=== PATIENT | male | born 1965 | race Caucasian/White ===

== ENCOUNTER 2020-09-21 07:58 | Inpatient (IN) | payer MEDICAID ==
[~2020-09-21] VITALS: Ht 180.3 cm; Wt 89.4 kg
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
[2020-09-21] MEDS ORDERED: SODIUM CHLORIDE FLUSH 10ML SYR IVF ONE (08:30)
[2020-09-21] MEDS ORDERED: LORazepam 2 MG/ML, 1ML IVPush ONE (08:30)
[2020-09-21] MEDS ORDERED: LORazepam 2 MG/ML, 1ML ONE (08:37)
[2020-09-21 08:48] LABS: MICROSCOPIC AUTO
[2020-09-21] MEDS ORDERED: SODIUM CHLORIDE 0.9% 1,000ML IVBOLUS ONE (09:00)
[2020-09-21 09:21] LABS: BASOPHILS % (AUTO) 0 % (0-1); EOSINOPHILS % (AUTO) 0 % (1-7); LYMPHOCYTES % (AUTO) 8 % (22-44); MEAN CORPUSCULAR HEMOGLOBIN 36.4 pg (27.5-34.5); MEAN CORPUSCULAR HGB CONC 34.3 g/dL (33.2-36.2); MONOCYTES % (AUTO) 16 % (2-9); NEUTROPHILS % (AUTO) 75 % (42-75); PLATELET COUNT 63 x10^3/uL (130-400); RED BLOOD COUNT 3.99 x10^6/uL (4.38-5.82); RED CELL DISTRIBUTION WIDTH 14.1 % (9.4-14.8)
[2020-09-21] MEDS: PLEASE ENTER HEIGHT AND WEIGHT MC SCH ×2 (09:30→17:30)
[2020-09-21 10:26] LABS: MD SCAN
[2020-09-21 10:45] LABS: ALANINE AMINOTRANSFERASE 55 U/L (12-78); ALBUMIN 3.4 g/dL (3.4-5.0); ANION GAP 17 mmol/L (5-15); CALCIUM 9.1 mg/dL (8.5-10.1); CHLORIDE 105 mmol/L (98-107); CREATININE 0.95 mg/dL (0.7-1.3)
[2020-09-21 10:50] LABS: ALKALINE PHOSPHATASE 94 U/L (45-117); BILIRUBIN,TOTAL 2.1 mg/dL (0.2-1.0); CREATINE KINASE, TOTAL 318 U/L (39-308); TOTAL PROTEIN 6.7 g/dL (6.4-8.2); TROPONIN I < 0.015 ng/mL (0.000-0.045)
--- NOTE | 2020-09-21 11:02 | NUR ---
LABS RESULTED, CHART UP FOR RECHECK
[2020-09-21] MEDS ORDERED: MAGNESIUM SULFATE 1 GM, THIAMINE 100 MG, FOLIC ACID 1 MG, MVI ADULT 10 ML in SODIUM CHL... IV ONE (12:17)
--- NOTE | 2020-09-21 12:32 | NUR ---
report from [facility]. patient in bed. rails up.
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
[2020-09-21] MEDS ORDERED: POTASSIUM CHLORIDE 20 MEQ TAB.ER.PRT PO ONE (16:30)
--- NOTE | 2020-09-21 16:41 | NUR ---
report to [facility]. patient in bed.
[2020-09-21] MEDS ORDERED: LORazepam 2 MG/ML, 1ML IV PRN ×5 (17:00)
[2020-09-21] MEDS ORDERED: LORazepam 1MG TABLET PO PRN ×4 (17:00)
[2020-09-21] MEDS ORDERED: LORazepam 0.5MG TABLET PO PRN (17:00)
[2020-09-21] MEDS ORDERED: ENOXAPARIN 30 MG/0.3 ML SQ SCH (17:00)
[2020-09-21 17:33] VITALS: BP 124/90
[2020-09-21 18:08] LABS: TROPONIN I < 0.015 ng/mL (0.000-0.045)
[2020-09-21 18:11] LABS: D-DIMER 17.77 ug/mlFEU (0.00-0.52); INTERNATIONAL NORMALIZED RATIO 1.07 (0.93-1.1); PROTHROMBIN TIME 11.3 Seconds (9.6-11.5)
[2020-09-21] MEDS: SODIUM CHLORIDE 0.9% 1,000 ML IV SCH (18:14)
[2020-09-21 18:20] LABS: HCT (SEDRATE) 41.6 % (39.2-51.8)
[2020-09-21 19:15] LABS: AMPHETAMINE SCREEN, URINE Negative (Negative); BARBITURATE SCREEN, URINE Negative (Negative); BENZODIAZEPINE SCREEN, URINE Negative (Negative); CANNABINOID SCREEN, URINE Negative (Negative); COCAINE SCREEN, URINE Negative (Negative); METHADONE SCREEN, URINE Negative (Negative); OPIATE SCREEN, URINE Negative (Negative)
[2020-09-21 19:53] VITALS: BP 139/84
[2020-09-21 23:27] LABS: TROPONIN I < 0.015 ng/mL (0.000-0.045)
[2020-09-22] MEDS ORDERED: OMNIPAQUE 350 MG/ML, 75ML BOTTLE ONE (01:30)
[2020-09-22 02:04] VITALS: BP 117/84
[2020-09-22] MEDS: ENOXAPARIN 80 MG/0.8 ML SQ SCH ×2 (03:04→15:46)
[2020-09-22] MEDS: SODIUM CHLORIDE 0.9% 1,000 ML IV SCH (03:26)
[2020-09-22 06:05] LABS: BASOPHILS % (AUTO) 2 % (0-1); EOSINOPHILS % (AUTO) 1 % (1-7); LYMPHOCYTES % (AUTO) 33 % (22-44); MEAN CORPUSCULAR HEMOGLOBIN 36.6 pg (27.5-34.5); MEAN CORPUSCULAR HGB CONC 34.6 g/dL (33.2-36.2); MEAN PLATELET VOLUME 9.5 fL (7.4-10.4); MONOCYTES % (AUTO) 21 % (2-9); NEUTROPHILS % (AUTO) 44 % (42-75); PLATELET COUNT 61 x10^3/uL (130-400); RED BLOOD COUNT 3.43 x10^6/uL (4.38-5.82); RED CELL DISTRIBUTION WIDTH 13.9 % (9.4-14.8)
[2020-09-22 06:10] LABS: MD NO
[2020-09-22 06:12] LABS: ALBUMIN 2.9 g/dL (3.4-5.0); CALCIUM 8.7 mg/dL (8.5-10.1); CHLORIDE 104 mmol/L (98-107)
[2020-09-22 06:24] LABS: ALANINE AMINOTRANSFERASE 48 U/L (12-78); ALKALINE PHOSPHATASE 83 U/L (45-117); ANION GAP 11 mmol/L (5-15); BILIRUBIN,TOTAL 1.7 mg/dL (0.2-1.0); CREATINE KINASE, TOTAL 148 U/L (39-308); CREATININE 0.86 mg/dL (0.7-1.3); TOTAL PROTEIN 5.8 g/dL (6.4-8.2)
[2020-09-22 07:56] VITALS: BP 127/88
[2020-09-22] MEDS ORDERED: POTASSIUM CHLORIDE 20 MEQ TAB.ER.PRT PO ONE (12:00)
[2020-09-22] MEDS: POTASSIUM CHLORIDE 20 MEQ, MAGNESIUM SULFATE 1 GM, MVI ADULT 10 ML, THIAMINE 200 MG, FO... IV SCH (12:27)
[2020-09-22 14:00] VITALS: BP 116/80
[2020-09-22 19:06] VITALS: BP 107/74
[2020-09-23 02:40] VITALS: BP 118/72
[2020-09-23] MEDS: ENOXAPARIN 80 MG/0.8 ML SQ SCH ×2 (02:53→14:23)
[2020-09-23 06:13] LABS: MEAN CORPUSCULAR HEMOGLOBIN 35.8 pg (27.5-34.5); MEAN CORPUSCULAR HGB CONC 34.3 g/dL (33.2-36.2); MEAN PLATELET VOLUME 9.6 fL (7.4-10.4); PLATELET COUNT 61 x10^3/uL (130-400); RED BLOOD COUNT 3.22 x10^6/uL (4.38-5.82); RED CELL DISTRIBUTION WIDTH 14.3 % (9.4-14.8)
[2020-09-23 06:16] LABS: ALBUMIN 2.6 g/dL (3.4-5.0); CALCIUM 8.1 mg/dL (8.5-10.1); CHLORIDE 104 mmol/L (98-107)
[2020-09-23 06:20] LABS: ALANINE AMINOTRANSFERASE 41 U/L (12-78); ALKALINE PHOSPHATASE 72 U/L (45-117); ANION GAP 6 mmol/L (5-15); BILIRUBIN,TOTAL 1.2 mg/dL (0.2-1.0); CREATININE 0.71 mg/dL (0.7-1.3); TOTAL PROTEIN 5.1 g/dL (6.4-8.2)
[2020-09-23 06:41] LABS: MD YES
[2020-09-23 06:43] LABS: SEG#(MANUAL) 0.72 x10^3/uL (1.8-6.8); SEGS% (MANUAL) 38 % (42-75)
[2020-09-23 06:44] LABS: BASOS#(MANUAL) 0.02 x10^3/uL (0-0.1); BASOS% (MANUAL) 1 % (0-1); EOS#(MANUAL) 0.02 x10^3/uL (0.0-0.4); EOS% (MANUAL) 1 % (1-7); LYMPHS% (MANUAL) 42 % (22-44); MONOS#(MANUAL) 0.34 x10^3/uL (0.3-2.7); MONOS% (MANUAL) 18 % (2-9)
[2020-09-23 06:45] LABS: <PLATELET ESTIMATE> DECREASED
[2020-09-23 06:47] LABS: <PLT MORPHOLOGY> NORMAL PLT MORPH
[2020-09-23] MEDS: POTASSIUM CHLORIDE 20 MEQ TAB.ER.PRT PO SCH ×2 (08:00→14:23)
[2020-09-23] MEDS ORDERED: POTASSIUM CHLORIDE 20 MEQ TAB.ER.PRT PO ONE (08:00)
[2020-09-23 09:45] VITALS: BP 107/74
[2020-09-23] MEDS: POTASSIUM CHLORIDE 20 MEQ, MAGNESIUM SULFATE 1 GM, MVI ADULT 10 ML, THIAMINE 200 MG, FO... IV SCH (12:00)
[2020-09-23 14:03] VITALS: BP 109/75
[2020-09-23 20:33] VITALS: BP 121/83
[2020-09-24 00:27] VITALS: BP 112/86
[2020-09-24] MEDS: ENOXAPARIN 80 MG/0.8 ML SQ SCH (03:37)
[2020-09-24 05:47] LABS: BASOPHILS % (AUTO) 1 % (0-1); EOSINOPHILS % (AUTO) 1 % (1-7); LYMPHOCYTES % (AUTO) 36 % (22-44); MEAN CORPUSCULAR HEMOGLOBIN 36.5 pg (27.5-34.5); MEAN CORPUSCULAR HGB CONC 34.8 g/dL (33.2-36.2); MEAN PLATELET VOLUME 10.2 fL (7.4-10.4); MONOCYTES % (AUTO) 22 % (2-9); NEUTROPHILS % (AUTO) 40 % (42-75); PLATELET COUNT 62 x10^3/uL (130-400); RED BLOOD COUNT 2.95 x10^6/uL (4.38-5.82); RED CELL DISTRIBUTION WIDTH 14.2 % (9.4-14.8)
[2020-09-24 06:02] LABS: ANION GAP 5 mmol/L (5-15); CALCIUM 8.1 mg/dL (8.5-10.1); CHLORIDE 107 mmol/L (98-107)
[2020-09-24 06:04] LABS: CREATININE 0.53 mg/dL (0.7-1.3)
[2020-09-24 06:08] LABS: MD SCAN
[2020-09-24 08:07] VITALS: BP 124/82
[2020-09-24] MEDS ORDERED: LABETALOL 5MG/ML, 20ML IVPush PRN (08:30)
[2020-09-24] MEDS ORDERED: ENALAPRILAT 1.25 MG/ML, 2ML IVPush PRN (08:30)
[2020-09-24] MEDS ORDERED: POLYETHYLENE GLYCOL 17 GM PACKET PO PRN (08:30)
[2020-09-24] MEDS ORDERED: ONDANSETRON 2MG/ML, 2ML IVPush PRN (08:30)
[2020-09-24] MEDS ORDERED: ONDANSETRON ODT 4 MG PO PRN (08:30)
[2020-09-24] MEDS ORDERED: DILTIAZEM 5 MG/ML, 5ML IVPush PRN (08:30)
[2020-09-24] MEDS ORDERED: BISACODYL 10 MG SUPP PR PRN (08:30)
[2020-09-24] MEDS: MULTIVITAMIN 1 TABLET PO SCH (09:03)
[2020-09-24] MEDS: SENNA/DOCUSATE TABLET PO SCH (09:03)
[2020-09-24] MEDS: FOLIC ACID 1 MG TABLET PO SCH (09:03)
[2020-09-24] MEDS: THIAMINE 100MG TABLET PO SCH ×2 (09:03→21:03)
[2020-09-24] MEDS: CARVEDILOL 3.125 MG TABLET PO SCH ×2 (09:04→18:01)
[2020-09-24] MEDS: ENOXAPARIN 100 MG/ML SQ SCH ×2 (09:04→21:04)
[2020-09-24] MEDS: GABAPENTIN 100 MG CAPSULE PO SCH ×3 (11:17→21:03)
[2020-09-24 13:16] VITALS: BP 114/76
[2020-09-24 21:02] VITALS: BP 108/78
[2020-09-25 01:49] VITALS: BP 117/71
[2020-09-25] MEDS: GABAPENTIN 100 MG CAPSULE PO SCH ×4 (05:43→21:07)
[2020-09-25] MEDS: CARVEDILOL 3.125 MG TABLET PO SCH ×2 (05:45→16:55)
[2020-09-25 05:49] LABS: BASOPHILS % (AUTO) 2 % (0-1); EOSINOPHILS % (AUTO) 1 % (1-7); LYMPHOCYTES % (AUTO) 28 % (22-44); MEAN CORPUSCULAR HEMOGLOBIN 36.3 pg (27.5-34.5); MEAN CORPUSCULAR HGB CONC 34.4 g/dL (33.2-36.2); MEAN PLATELET VOLUME 9.8 fL (7.4-10.4); MONOCYTES % (AUTO) 24 % (2-9); NEUTROPHILS % (AUTO) 44 % (42-75); PLATELET COUNT 72 x10^3/uL (130-400); RED BLOOD COUNT 2.99 x10^6/uL (4.38-5.82); RED CELL DISTRIBUTION WIDTH 14.4 % (9.4-14.8)
[2020-09-25 05:55] LABS: ALBUMIN 2.6 g/dL (3.4-5.0); ANION GAP 4 mmol/L (5-15); CALCIUM 8.3 mg/dL (8.5-10.1); CHLORIDE 108 mmol/L (98-107)
[2020-09-25 06:01] LABS: ALANINE AMINOTRANSFERASE 40 U/L (12-78); ALKALINE PHOSPHATASE 70 U/L (45-117); BILIRUBIN,TOTAL 0.9 mg/dL (0.2-1.0); CREATININE 0.59 mg/dL (0.7-1.3); TOTAL PROTEIN 5.2 g/dL (6.4-8.2)
[2020-09-25 06:49] LABS: MD SCAN
[2020-09-25 08:26] VITALS: BP 112/73
[2020-09-25] MEDS: THIAMINE 100MG TABLET PO SCH ×2 (09:00→21:08)
[2020-09-25] MEDS ORDERED: APIXABAN 5 MG TABLET PO SCH (09:00)
[2020-09-25] MEDS: SENNA/DOCUSATE TABLET PO SCH (09:00)
[2020-09-25] MEDS: MULTIVITAMIN 1 TABLET PO SCH (09:44)
[2020-09-25] MEDS: FOLIC ACID 1 MG TABLET PO SCH (09:44)
[2020-09-25] MEDS: APIXABAN 5 MG TABLET PO SCH ×2 (09:45→21:08)
[2020-09-25 13:36] VITALS: BP 99/67
[2020-09-25 20:30] VITALS: BP 111/70
[2020-09-26 01:09] VITALS: BP 114/74
[2020-09-26 03:53] LABS: MICROSCOPIC NOT IND
[2020-09-26 05:34] LABS: MEAN CORPUSCULAR HEMOGLOBIN 36.9 pg (27.5-34.5); MEAN CORPUSCULAR HGB CONC 34.6 g/dL (33.2-36.2); MEAN PLATELET VOLUME 9.5 fL (7.4-10.4); PLATELET COUNT 98 x10^3/uL (130-400); RED BLOOD COUNT 2.94 x10^6/uL (4.38-5.82); RED CELL DISTRIBUTION WIDTH 14.2 % (9.4-14.8)
[2020-09-26 05:37] LABS: ANION GAP 6 mmol/L (5-15); CALCIUM 8.3 mg/dL (8.5-10.1); CHLORIDE 110 mmol/L (98-107); CREATININE 0.65 mg/dL (0.7-1.3)
[2020-09-26] MEDS: GABAPENTIN 100 MG CAPSULE PO SCH ×2 (05:58→12:02)
[2020-09-26] MEDS: CARVEDILOL 3.125 MG TABLET PO SCH ×2 (05:58→16:57)
[2020-09-26 06:04] LABS: MD YES
[2020-09-26 06:39] LABS: LYMPH#(MANUAL) 0.92 x10^3/uL (1-3.4); LYMPHS% (MANUAL) 46 % (22-44); MONOS#(MANUAL) 0.34 x10^3/uL (0.3-2.7); MONOS% (MANUAL) 17 % (2-9)
[2020-09-26 06:45] LABS: <PLATELET ESTIMATE> DECREASED; <PLT MORPHOLOGY> NORMAL PLT MORPH; EOS#(MANUAL) 0.02 x10^3/uL (0.0-0.4); EOS% (MANUAL) 1 % (1-7)
[2020-09-26 06:48] LABS: SEG#(MANUAL) 0.72 x10^3/uL (1.8-6.8); SEGS% (MANUAL) 36 % (42-75)
[2020-09-26 08:40] VITALS: BP 107/76
[2020-09-26] MEDS: SENNA/DOCUSATE TABLET PO SCH (09:46)
[2020-09-26] MEDS: THIAMINE 100MG TABLET PO SCH ×2 (09:46→22:09)
[2020-09-26] MEDS: MULTIVITAMIN 1 TABLET PO SCH (09:46)
[2020-09-26] MEDS: FOLIC ACID 1 MG TABLET PO SCH (09:46)
[2020-09-26] MEDS: APIXABAN 5 MG TABLET PO SCH ×2 (09:47→22:10)
[2020-09-26 14:50] VITALS: BP 112/75
[2020-09-26] MEDS: GABAPENTIN 300 MG CAPSULE PO SCH ×2 (16:53→22:10)
[2020-09-26 20:52] VITALS: BP 117/82
[2020-09-27 00:52] VITALS: BP 132/89
[2020-09-27 06:01] VITALS: BP 121/87
[2020-09-27] MEDS: GABAPENTIN 300 MG CAPSULE PO SCH ×4 (06:04→22:01)
[2020-09-27] MEDS: CARVEDILOL 3.125 MG TABLET PO SCH ×2 (06:04→17:06)
[2020-09-27 06:15] LABS: MEAN CORPUSCULAR HEMOGLOBIN 37.9 pg (27.5-34.5); MEAN CORPUSCULAR HGB CONC 35.4 g/dL (33.2-36.2); MEAN PLATELET VOLUME 9.3 fL (7.4-10.4); PLATELET COUNT 122 x10^3/uL (130-400); RED BLOOD COUNT 3.05 x10^6/uL (4.38-5.82); RED CELL DISTRIBUTION WIDTH 14.4 % (9.4-14.8)
[2020-09-27 07:24] VITALS: BP 118/83
[2020-09-27 07:29] LABS: MD YES
[2020-09-27 07:34] LABS: ANION GAP 8 mmol/L (5-15); CALCIUM 8.8 mg/dL (8.5-10.1); CHLORIDE 109 mmol/L (98-107); CREATININE 0.59 mg/dL (0.7-1.3)
[2020-09-27 08:18] LABS: BAND#(MANUAL) 0.02 x10^3/uL; BANDS%(MANUAL) 1 % (0-7); LYMPH#(MANUAL) 0.59 x10^3/uL (1-3.4); LYMPHS% (MANUAL) 27 % (22-44); MONOS#(MANUAL) 0.33 x10^3/uL (0.3-2.7); MONOS% (MANUAL) 15 % (2-9); SEG#(MANUAL) 1.25 x10^3/uL (1.8-6.8); SEGS% (MANUAL) 57 % (42-75)
[2020-09-27 08:19] LABS: <PLATELET ESTIMATE> DECREASED; <PLT MORPHOLOGY> NORMAL PLT MORPH
[2020-09-27] MEDS: APIXABAN 5 MG TABLET PO SCH ×2 (09:08→22:01)
[2020-09-27] MEDS: FOLIC ACID 1 MG TABLET PO SCH (09:08)
[2020-09-27] MEDS: MULTIVITAMIN 1 TABLET PO SCH (09:08)
[2020-09-27] MEDS: THIAMINE 100MG TABLET PO SCH ×2 (09:08→22:01)
[2020-09-27] MEDS: SENNA/DOCUSATE TABLET PO SCH (09:09)
[2020-09-27 12:38] VITALS: BP 100/69
[2020-09-27 21:52] VITALS: BP 98/65
[2020-09-28] MEDS: CARVEDILOL 3.125 MG TABLET PO SCH ×2 (04:23→18:00)
[2020-09-28] MEDS: GABAPENTIN 300 MG CAPSULE PO SCH ×4 (04:23→21:54)
[2020-09-28 04:26] VITALS: BP 98/66
[2020-09-28 06:13] LABS: MEAN CORPUSCULAR HEMOGLOBIN 38.3 pg (27.5-34.5); MEAN CORPUSCULAR HGB CONC 35.2 g/dL (33.2-36.2); MEAN PLATELET VOLUME 9.5 fL (7.4-10.4); PLATELET COUNT 149 x10^3/uL (130-400); RED BLOOD COUNT 3.08 x10^6/uL (4.38-5.82); RED CELL DISTRIBUTION WIDTH 14.9 % (9.4-14.8)
[2020-09-28 06:18] LABS: ANION GAP 6 mmol/L (5-15); CALCIUM 8.6 mg/dL (8.5-10.1); CHLORIDE 108 mmol/L (98-107)
[2020-09-28 06:20] LABS: CREATININE 0.57 mg/dL (0.7-1.3)
[2020-09-28 07:16] VITALS: BP 108/76
[2020-09-28 08:39] LABS: MD YES
[2020-09-28 08:41] LABS: <PLATELET ESTIMATE> ADEQUATE; <PLT MORPHOLOGY> NORMAL PLT MORPH; BASOS#(MANUAL) 0.08 x10^3/uL (0-0.1); BASOS% (MANUAL) 3 % (0-1); LYMPH#(MANUAL) 0.84 x10^3/uL (1-3.4); LYMPHS% (MANUAL) 31 % (22-44); MONOS#(MANUAL) 0.46 x10^3/uL (0.3-2.7); MONOS% (MANUAL) 17 % (2-9); POLYCHROMASIA 1+; SEG#(MANUAL) 1.32 x10^3/uL (1.8-6.8); SEGS% (MANUAL) 49 % (42-75)
[2020-09-28] MEDS: SENNA/DOCUSATE TABLET PO SCH (08:55)
[2020-09-28] MEDS: THIAMINE 100MG TABLET PO SCH ×2 (09:00→21:54)
[2020-09-28] MEDS: APIXABAN 5 MG TABLET PO SCH ×2 (09:01→21:54)
[2020-09-28] MEDS: MULTIVITAMIN 1 TABLET PO SCH (09:02)
[2020-09-28] MEDS: FOLIC ACID 1 MG TABLET PO SCH (09:03)
[2020-09-28 13:47] VITALS: BP 98/66
[2020-09-28 21:51] VITALS: BP 115/78
[2020-09-29 02:17] VITALS: BP 100/69
[2020-09-29 06:01] VITALS: BP 119/80
[2020-09-29] MEDS: GABAPENTIN 300 MG CAPSULE PO SCH ×4 (06:07→20:23)
[2020-09-29] MEDS: CARVEDILOL 3.125 MG TABLET PO SCH ×2 (06:08→18:11)
[2020-09-29 07:17] VITALS: BP 120/83
[2020-09-29] MEDS: THIAMINE 100MG TABLET PO SCH ×2 (08:28→20:23)
[2020-09-29] MEDS: APIXABAN 5 MG TABLET PO SCH ×2 (08:28→20:22)
[2020-09-29] MEDS: FOLIC ACID 1 MG TABLET PO SCH (08:28)
[2020-09-29] MEDS: MULTIVITAMIN 1 TABLET PO SCH (08:28)
[2020-09-29] MEDS: SENNA/DOCUSATE TABLET PO SCH (08:29)
[2020-09-29] MEDS: ACETAMINOPHEN 325 MG TABLET PO PRN (08:31)
[2020-09-29 10:13] VITALS: BP 93/64
[2020-09-29 13:27] VITALS: BP 103/71
[2020-09-29 19:52] VITALS: BP 107/67
[2020-09-30 02:45] VITALS: BP 110/71
[2020-09-30] MEDS: GABAPENTIN 300 MG CAPSULE PO SCH ×4 (06:09→21:42)
[2020-09-30] MEDS: CARVEDILOL 3.125 MG TABLET PO SCH ×2 (06:09→16:50)
[2020-09-30 06:54] LABS: BASOPHILS % (AUTO) 3 % (0-1); EOSINOPHILS % (AUTO) 1 % (1-7); LYMPHOCYTES % (AUTO) 30 % (22-44); MEAN CORPUSCULAR HGB CONC 34.2 g/dL (33.2-36.2); MEAN PLATELET VOLUME 8.9 fL (7.4-10.4); MONOCYTES % (AUTO) 15 % (2-9); NEUTROPHILS % (AUTO) 51 % (42-75); PLATELET COUNT 241 x10^3/uL (130-400); RED BLOOD COUNT 3.43 x10^6/uL (4.38-5.82); RED CELL DISTRIBUTION WIDTH 14.6 % (9.4-14.8)
[2020-09-30 07:02] VITALS: BP 104/74
[2020-09-30 07:04] LABS: MD NO
[2020-09-30] MEDS: SENNA/DOCUSATE TABLET PO SCH (07:50)
[2020-09-30] MEDS: MULTIVITAMIN 1 TABLET PO SCH (07:54)
[2020-09-30] MEDS: APIXABAN 5 MG TABLET PO SCH ×2 (07:54→21:42)
[2020-09-30] MEDS: THIAMINE 100MG TABLET PO SCH ×2 (07:54→21:42)
[2020-09-30] MEDS: FOLIC ACID 1 MG TABLET PO SCH (07:54)
[2020-09-30 13:19] VITALS: BP 110/68
[2020-09-30 19:20] VITALS: BP 101/70
[2020-10-01 00:26] VITALS: BP 100/67
[2020-10-01 05:18] VITALS: BP 109/75
[2020-10-01] MEDS: CARVEDILOL 3.125 MG TABLET PO SCH ×2 (05:19→17:54)
[2020-10-01] MEDS: GABAPENTIN 300 MG CAPSULE PO SCH ×4 (05:21→19:33)
[2020-10-01] MEDS: FOLIC ACID 1 MG TABLET PO SCH (07:30)
[2020-10-01] MEDS: THIAMINE 100MG TABLET PO SCH ×2 (07:30→19:33)
[2020-10-01] MEDS: SENNA/DOCUSATE TABLET PO SCH (07:31)
[2020-10-01] MEDS: MULTIVITAMIN 1 TABLET PO SCH (07:31)
[2020-10-01] MEDS: APIXABAN 5 MG TABLET PO SCH ×2 (07:31→19:33)
[2020-10-01 08:15] VITALS: BP 100/68
[2020-10-01 12:17] VITALS: BP 105/72
[2020-10-01 17:52] VITALS: BP 110/67
[2020-10-01 18:51] VITALS: BP 106/71
[2020-10-02 02:08] VITALS: BP 113/78
[2020-10-02 05:21] VITALS: BP 121/80
[2020-10-02] MEDS: GABAPENTIN 300 MG CAPSULE PO SCH ×4 (05:25→19:21)
[2020-10-02] MEDS: CARVEDILOL 3.125 MG TABLET PO SCH ×2 (05:25→17:40)
[2020-10-02 07:36] VITALS: BP 99/71
[2020-10-02] MEDS: THIAMINE 100MG TABLET PO SCH ×2 (07:41→19:21)
[2020-10-02] MEDS: APIXABAN 5 MG TABLET PO SCH ×2 (07:41→19:21)
[2020-10-02] MEDS: LISINOPRIL 5 MG TABLET PO SCH (07:41)
[2020-10-02] MEDS: FOLIC ACID 1 MG TABLET PO SCH (07:41)
[2020-10-02] MEDS: MULTIVITAMIN 1 TABLET PO SCH (07:41)
[2020-10-02] MEDS: SENNA/DOCUSATE TABLET PO SCH (07:44)
[2020-10-02] MEDS ORDERED: LINEZOLID 600 MG TABLET PO SCH (09:00)
[2020-10-02] MEDS: AMOXICILLIN/CLAV 875-125MG TABLET PO SCH ×2 (10:50→22:42)
[2020-10-02 14:46] VITALS: BP 100/74
[2020-10-02] MEDS ORDERED: morphine SULFATE 10 MG/ML, 1ML IVPush ONE (15:30)
[2020-10-02 17:37] VITALS: BP 101/67
[2020-10-02 18:42] VITALS: BP 93/64
[2020-10-03 01:20] VITALS: BP 101/65
[2020-10-03] MEDS: CARVEDILOL 3.125 MG TABLET PO SCH ×2 (05:43→18:29)
[2020-10-03] MEDS: GABAPENTIN 300 MG CAPSULE PO SCH ×4 (05:43→20:58)
[2020-10-03] MEDS: APIXABAN 5 MG TABLET PO SCH ×2 (07:45→20:58)
[2020-10-03] MEDS: ACETAMINOPHEN 325 MG TABLET PO PRN (07:45)
[2020-10-03] MEDS: THIAMINE 100MG TABLET PO SCH ×2 (07:45→20:58)
[2020-10-03] MEDS: MULTIVITAMIN 1 TABLET PO SCH (07:45)
[2020-10-03] MEDS: FOLIC ACID 1 MG TABLET PO SCH (07:45)
[2020-10-03] MEDS: SENNA/DOCUSATE TABLET PO SCH (07:46)
[2020-10-03] MEDS: LISINOPRIL 5 MG TABLET PO SCH (07:46)
[2020-10-03 08:22] VITALS: BP 102/72
[2020-10-03] MEDS: AMOXICILLIN/CLAV 875-125MG TABLET PO SCH ×2 (10:51→23:38)
[2020-10-03 12:45] VITALS: BP 113/79
[2020-10-03 18:21] VITALS: BP 115/80
[2020-10-04 03:08] VITALS: BP 108/75
[2020-10-04 05:43] VITALS: BP 120/74
[2020-10-04] MEDS: CARVEDILOL 3.125 MG TABLET PO SCH ×2 (05:44→16:47)
[2020-10-04] MEDS: GABAPENTIN 300 MG CAPSULE PO SCH ×4 (05:44→20:28)
[2020-10-04] MEDS: FOLIC ACID 1 MG TABLET PO SCH (08:54)
[2020-10-04] MEDS: THIAMINE 100MG TABLET PO SCH ×2 (08:54→20:28)
[2020-10-04] MEDS: LISINOPRIL 5 MG TABLET PO SCH (08:54)
[2020-10-04] MEDS: APIXABAN 5 MG TABLET PO SCH ×2 (08:54→20:28)
[2020-10-04] MEDS: MULTIVITAMIN 1 TABLET PO SCH (08:54)
[2020-10-04] MEDS: SENNA/DOCUSATE TABLET PO SCH (08:55)
[2020-10-04 10:33] VITALS: BP 96/70
[2020-10-04] MEDS: AMOXICILLIN/CLAV 875-125MG TABLET PO SCH ×2 (11:21→22:55)
[2020-10-04 12:29] VITALS: BP 110/69
[2020-10-04 18:08] VITALS: BP 110/72
[2020-10-04] MEDS: ACETAMINOPHEN 325 MG TABLET PO PRN (20:34)
[2020-10-05 02:39] VITALS: BP 99/68
[2020-10-05 05:35] VITALS: BP 102/72
[2020-10-05] MEDS: CARVEDILOL 3.125 MG TABLET PO SCH ×2 (05:37→17:41)
[2020-10-05] MEDS: GABAPENTIN 300 MG CAPSULE PO SCH ×4 (05:37→20:43)
[2020-10-05 07:38] VITALS: BP 102/76
[2020-10-05] MEDS: THIAMINE 100MG TABLET PO SCH ×2 (07:52→20:43)
[2020-10-05] MEDS: MULTIVITAMIN 1 TABLET PO SCH (07:52)
[2020-10-05] MEDS: APIXABAN 5 MG TABLET PO SCH ×2 (07:52→20:43)
[2020-10-05] MEDS: ACETAMINOPHEN 325 MG TABLET PO PRN ×2 (07:52→15:50)
[2020-10-05] MEDS: FOLIC ACID 1 MG TABLET PO SCH (07:52)
[2020-10-05] MEDS: LISINOPRIL 5 MG TABLET PO SCH ×2 (07:53→07:54)
[2020-10-05] MEDS: SENNA/DOCUSATE TABLET PO SCH (07:53)
[2020-10-05] MEDS: AMOXICILLIN/CLAV 875-125MG TABLET PO SCH ×2 (10:17→22:18)
[2020-10-05 12:44] VITALS: BP 99/66
[2020-10-05 17:40] VITALS: BP 99/68
[2020-10-05 18:26] VITALS: BP 94/65
[2020-10-06 02:39] VITALS: BP 90/63
[2020-10-06] MEDS: CARVEDILOL 3.125 MG TABLET PO SCH ×2 (05:53→18:00)
[2020-10-06] MEDS: GABAPENTIN 300 MG CAPSULE PO SCH ×4 (05:53→19:54)
[2020-10-06 06:42] VITALS: BP 111/80
[2020-10-06] MEDS: MULTIVITAMIN 1 TABLET PO SCH (08:14)
[2020-10-06] MEDS: APIXABAN 5 MG TABLET PO SCH ×2 (08:14→19:54)
[2020-10-06] MEDS: ACETAMINOPHEN 325 MG TABLET PO PRN ×2 (08:14→23:26)
[2020-10-06] MEDS: FOLIC ACID 1 MG TABLET PO SCH (08:14)
[2020-10-06] MEDS: THIAMINE 100MG TABLET PO SCH ×2 (08:15→19:54)
[2020-10-06] MEDS: SENNA/DOCUSATE TABLET PO SCH (08:16)
[2020-10-06 12:51] VITALS: BP 105/71
[2020-10-06 17:45] VITALS: BP 108/75
[2020-10-06 19:13] VITALS: BP 102/63
[2020-10-07 01:41] VITALS: BP 99/69
[2020-10-07 05:35] VITALS: BP 102/74
[2020-10-07] MEDS: GABAPENTIN 300 MG CAPSULE PO SCH ×4 (05:36→19:40)
[2020-10-07] MEDS: CARVEDILOL 3.125 MG TABLET PO SCH ×2 (05:36→18:04)
[2020-10-07 06:56] VITALS: BP 106/74
[2020-10-07] MEDS: FOLIC ACID 1 MG TABLET PO SCH (09:08)
[2020-10-07] MEDS: APIXABAN 5 MG TABLET PO SCH ×2 (09:08→19:40)
[2020-10-07] MEDS: MULTIVITAMIN 1 TABLET PO SCH (09:08)
[2020-10-07] MEDS: THIAMINE 100MG TABLET PO SCH ×2 (09:08→19:40)
[2020-10-07 12:28] VITALS: BP 103/71
[2020-10-07 19:02] VITALS: BP 105/69
[2020-10-07] MEDS: ACETAMINOPHEN 325 MG TABLET PO PRN (19:52)
[2020-10-08 03:01] VITALS: BP 117/77
[2020-10-08 05:27] VITALS: BP 109/79
[2020-10-08] MEDS: GABAPENTIN 300 MG CAPSULE PO SCH ×4 (05:28→22:15)
[2020-10-08] MEDS: CARVEDILOL 3.125 MG TABLET PO SCH ×2 (05:28→17:17)
[2020-10-08 06:20] VITALS: BP 123/70
[2020-10-08] MEDS: MULTIVITAMIN 1 TABLET PO SCH (08:17)
[2020-10-08] MEDS: APIXABAN 5 MG TABLET PO SCH ×2 (08:17→22:15)
[2020-10-08] MEDS: THIAMINE 100MG TABLET PO SCH ×2 (08:18→22:15)
[2020-10-08] MEDS: FOLIC ACID 1 MG TABLET PO SCH (08:18)
[2020-10-08 12:52] VITALS: BP 107/77
[2020-10-08 18:51] VITALS: BP 103/74
[2020-10-09 01:59] VITALS: BP 121/88
[2020-10-09] MEDS: CARVEDILOL 3.125 MG TABLET PO SCH ×2 (06:29→18:27)
[2020-10-09] MEDS: GABAPENTIN 300 MG CAPSULE PO SCH ×4 (06:29→21:50)
[2020-10-09 07:04] VITALS: BP 107/80
[2020-10-09] MEDS: THIAMINE 100MG TABLET PO SCH ×2 (07:51→21:50)
[2020-10-09] MEDS: FOLIC ACID 1 MG TABLET PO SCH (07:51)
[2020-10-09] MEDS: MULTIVITAMIN 1 TABLET PO SCH (07:51)
[2020-10-09] MEDS: APIXABAN 5 MG TABLET PO SCH ×2 (07:52→21:50)
[2020-10-09 13:46] VITALS: BP 121/82
[2020-10-09 18:25] VITALS: BP 110/67
[2020-10-10 00:17] VITALS: BP 109/75
[2020-10-10 05:35] VITALS: BP 104/70
[2020-10-10] MEDS: CARVEDILOL 3.125 MG TABLET PO SCH ×2 (05:36→17:39)
[2020-10-10] MEDS: GABAPENTIN 300 MG CAPSULE PO SCH ×4 (05:36→20:31)
[2020-10-10 06:58] VITALS: BP 99/72
[2020-10-10] MEDS: FOLIC ACID 1 MG TABLET PO SCH (08:27)
[2020-10-10] MEDS: THIAMINE 100MG TABLET PO SCH ×2 (08:27→20:31)
[2020-10-10] MEDS: MULTIVITAMIN 1 TABLET PO SCH (08:27)
[2020-10-10] MEDS: APIXABAN 5 MG TABLET PO SCH ×2 (08:28→20:31)
[2020-10-10 12:32] VITALS: BP 113/76
[2020-10-10 18:26] VITALS: BP 119/83
[2020-10-10] MEDS: ACETAMINOPHEN 325 MG TABLET PO PRN (20:42)
[2020-10-11 00:41] VITALS: BP 96/67
[2020-10-11] MEDS: CARVEDILOL 3.125 MG TABLET PO SCH ×2 (05:41→17:09)
[2020-10-11] MEDS: GABAPENTIN 300 MG CAPSULE PO SCH ×4 (05:41→19:50)
[2020-10-11 06:28] VITALS: BP 118/80
[2020-10-11] MEDS: THIAMINE 100MG TABLET PO SCH ×2 (09:53→19:51)
[2020-10-11] MEDS: FOLIC ACID 1 MG TABLET PO SCH (09:53)
[2020-10-11] MEDS: MULTIVITAMIN 1 TABLET PO SCH (09:53)
[2020-10-11] MEDS: APIXABAN 5 MG TABLET PO SCH ×2 (09:53→19:50)
[2020-10-11 12:24] VITALS: BP 103/72
[2020-10-11 19:23] VITALS: BP 116/75
[2020-10-11] MEDS: ACETAMINOPHEN 325 MG TABLET PO PRN (19:51)
[2020-10-12 01:45] VITALS: BP 115/81
[2020-10-12] MEDS: GABAPENTIN 300 MG CAPSULE PO SCH ×4 (06:19→20:00)
[2020-10-12] MEDS: CARVEDILOL 3.125 MG TABLET PO SCH ×2 (06:19→17:54)
[2020-10-12 06:21] VITALS: BP 118/83
[2020-10-12] MEDS: FOLIC ACID 1 MG TABLET PO SCH (09:16)
[2020-10-12] MEDS: THIAMINE 100MG TABLET PO SCH ×2 (09:16→20:00)
[2020-10-12] MEDS: MULTIVITAMIN 1 TABLET PO SCH (09:16)
[2020-10-12] MEDS: APIXABAN 5 MG TABLET PO SCH ×2 (09:16→20:00)
[2020-10-12 12:29] VITALS: BP 102/72
[2020-10-12 18:18] VITALS: BP 110/72
[2020-10-12] MEDS: ACETAMINOPHEN 325 MG TABLET PO PRN (20:13)
[2020-10-13 01:15] VITALS: BP 116/82
[2020-10-13 05:08] LABS: BASOPHILS % (AUTO) 3 % (0-1); EOSINOPHILS % (AUTO) 3 % (1-7); LYMPHOCYTES % (AUTO) 43 % (22-44); MEAN CORPUSCULAR HEMOGLOBIN 37.4 pg (27.5-34.5); MEAN CORPUSCULAR HGB CONC 34.9 g/dL (33.2-36.2); MEAN PLATELET VOLUME 8.2 fL (7.4-10.4); MONOCYTES % (AUTO) 12 % (2-9); NEUTROPHILS % (AUTO) 40 % (42-75); PLATELET COUNT 275 x10^3/uL (130-400); RED BLOOD COUNT 3.83 x10^6/uL (4.38-5.82); RED CELL DISTRIBUTION WIDTH 13.5 % (9.4-14.8)
[2020-10-13 05:15] LABS: MD SCAN
[2020-10-13 05:20] LABS: CHLORIDE 108 mmol/L (98-107)
[2020-10-13 05:30] LABS: ALANINE AMINOTRANSFERASE 32 U/L (12-78); ALBUMIN 3.2 g/dL (3.4-5.0); ALKALINE PHOSPHATASE 86 U/L (45-117); ANION GAP 5 mmol/L (5-15); BILIRUBIN,TOTAL 0.6 mg/dL (0.2-1.0); CALCIUM 8.8 mg/dL (8.5-10.1); CREATININE 0.72 mg/dL (0.7-1.3); TOTAL PROTEIN 6.2 g/dL (6.4-8.2)
[2020-10-13] MEDS: CARVEDILOL 3.125 MG TABLET PO SCH ×2 (06:25→17:16)
[2020-10-13] MEDS: GABAPENTIN 300 MG CAPSULE PO SCH ×4 (06:25→20:37)
[2020-10-13 07:35] VITALS: BP 114/86
[2020-10-13] MEDS: APIXABAN 5 MG TABLET PO SCH ×2 (09:01→20:36)
[2020-10-13] MEDS: MULTIVITAMIN 1 TABLET PO SCH (09:01)
[2020-10-13] MEDS: THIAMINE 100MG TABLET PO SCH ×2 (09:02→20:35)
[2020-10-13] MEDS: FOLIC ACID 1 MG TABLET PO SCH (09:02)
[2020-10-13 13:10] VITALS: BP 108/70
[2020-10-13 18:27] VITALS: BP 107/70
[2020-10-13] MEDS ORDERED: GABAPENTIN 100 MG CAPSULE ONE (20:34)
[2020-10-13] MEDS: ACETAMINOPHEN 325 MG TABLET PO PRN (20:37)
[2020-10-14 01:49] VITALS: BP 101/70
[2020-10-14] MEDS: GABAPENTIN 300 MG CAPSULE PO SCH ×2 (06:13→10:29)
[2020-10-14] MEDS: CARVEDILOL 3.125 MG TABLET PO SCH (06:13)
[2020-10-14 07:55] VITALS: BP 125/87
[2020-10-14] MEDS: MULTIVITAMIN 1 TABLET PO SCH (08:04)
[2020-10-14] MEDS: THIAMINE 100MG TABLET PO SCH (08:04)
[2020-10-14] MEDS: FOLIC ACID 1 MG TABLET PO SCH (08:04)
[2020-10-14] MEDS: APIXABAN 5 MG TABLET PO SCH (08:04)
[2020-10-14] MEDS ORDERED: GABA300C PO (12:29)
[2020-10-14] MEDS ORDERED: APIX5TAB PO (12:29)
[2020-10-14] MEDS ORDERED: CARV3.1212 PO (12:29)
[2020-10-14] MEDS ORDERED: THIA100T67 PO (12:29)
== END 2020-10-14 14:09 | DRG 175 ==
LOC: ED 09:04 → EDIP 11:41 → 5SO 17:18 → 4NW 09-29 10:02 → 4NE 10-06 08:25 → 4NW 10-06 19:41
PROVIDERS: ADMIT Family Medicine; ATTEND Internal Medicine
PROC: 0X980ZZ Drainage of Right Upper Arm, Open Approach (ICD-10-PCS; principal; 2020-10-02)
DX: I26.99 Other pulmonary embolism without acute cor pulmonale (principal); G93.41 Metabolic encephalopathy; D68.69 Other thrombophilia; E87.2 Acidosis; F10.239 Alcohol dependence with withdrawal, unspecified; I50.20 Unspecified systolic (congestive) heart failure; R47.01 Aphasia; L02.413 Cutaneous abscess of right upper limb; D53.9 Nutritional anemia, unspecified; D69.6 Thrombocytopenia, unspecified; D70.9 Neutropenia, unspecified; D75.89 Other specified diseases of blood and blood-forming organs; E87.6 Hypokalemia; F40.240 Claustrophobia; G62.1 Alcoholic polyneuropathy; I48.0 Paroxysmal atrial fibrillation; Z79.01 Long term (current) use of anticoagulants; R31.9 Hematuria, unspecified; Z88.2 Allergy status to sulfonamides
CPT/HCPCS: 36415; 70450; 70551; 71045; 71275; 76536; 80048; 80053; 80307; 80320; 81001; 81003; 82140; 82542; 82550; 82607; 83735; 84100; 84145; 84443; 84484; 85025; 85379; 85610; 85651; 86704; 86706; 86708; 86803; 87040; 87070; 87075; 87205; 87340; 87806; 93005; 93306; 93970; 96374; 99285; G0378; J1650; J3411; J3475; J3480; Q9967; 92523-GN; G0475; G0480; J2060; J2270; J7030

== ENCOUNTER 2020-12-15 03:00 | Inpatient (IN) | payer MEDICAID ==
[~2020-12-15] VITALS: Ht 180.3 cm; Wt 93.9 kg
[~2020-12-15 03:00] MED LIST: APIX5TAB PO; CARV3.1212 PO; GABA300C PO; THIA100T67 PO
[2020-12-15] MEDS ORDERED: ASPIRIN 81 MG TABLET CHEW ONE (03:14)
[2020-12-15] MEDS ORDERED: DILTIAZEM 5 MG/ML, 5ML ONE (03:15)
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
[2020-12-15] MEDS ORDERED: SODIUM CHLORIDE 0.9% 1,000ML IVBOLUS ONE (03:30)
[2020-12-15] MEDS ORDERED: ASPIRIN 81 MG TABLET CHEW PO ONE (03:30)
[2020-12-15] MEDS ORDERED: DILTIAZEM 5 MG/ML, 5ML IVPush ONE (03:30)
--- NOTE | 2020-12-15 03:37 | NUR ---
VS UPDATED AND ARE IMPROVED AFTER MED. HR UPON ARRIVAL WAS 170'S TO 190'S. AFTER MED DOWN TO 120'S TO 130'S. A-FIB ON MONITOR. MOTHER AT BS FOR SUPPORT. ALL MONIOTRS PLACED ON ARRIVAL. CALL LIGHT IN REACH AND EXPLAINED. BS REPORT TO KIMBERLY VEGA TO ASSUME CARE OF PT.
[2020-12-15 03:40] LABS: BASOPHILS % (AUTO) 0 % (0-1); EOSINOPHILS % (AUTO) 0 % (1-7); LYMPHOCYTES % (AUTO) 8 % (22-44); MEAN CORPUSCULAR HEMOGLOBIN 34.5 pg (27.5-34.5); MEAN CORPUSCULAR HGB CONC 34.5 g/dL (33.2-36.2); MEAN PLATELET VOLUME 9.7 fL (7.4-10.4); MONOCYTES % (AUTO) 10 % (2-9); NEUTROPHILS % (AUTO) 82 % (42-75); PLATELET COUNT 80 x10^3/uL (130-400); RED BLOOD COUNT 4.53 x10^6/uL (4.38-5.82); RED CELL DISTRIBUTION WIDTH 12.6 % (9.4-14.8)
[2020-12-15 03:42] LABS: MD NO
[2020-12-15 03:52] LABS: ALBUMIN 4.3 g/dL (3.4-5.0); ANION GAP 15 mmol/L (5-15); CALCIUM 9.3 mg/dL (8.5-10.1); CHLORIDE 97 mmol/L (98-107); CREATININE 0.79 mg/dL (0.7-1.3)
[2020-12-15 03:56] LABS: TROPONIN I < 0.015 ng/mL (0.000-0.045)
--- NOTE | 2020-12-15 04:11 | NUR ---
PT TOLD RN THAT HE HAS BEEN DRINKING ETOH. HEAVY FOR THE LAST COUPLE WEEK BUT STOPTED1 WEEK AGO
[2020-12-15] MEDS ORDERED: CARVEDILOL 3.125 MG TABLET ONE (04:15)
[2020-12-15] MEDS ORDERED: LORazepam 2 MG/ML, 1ML ONE (04:18)
[2020-12-15] MEDS ORDERED: LORazepam 2 MG/ML, 1ML IVPush ONE (04:30)
[2020-12-15] MEDS ORDERED: CARVEDILOL 3.125 MG TABLET PO ONE (04:30)
[2020-12-15] MEDS: CARVEDILOL 3.125 MG TABLET PO SCH ×3 (04:58→16:49)
[2020-12-15] MEDS ORDERED: THIAMINE 200 MG in DEXTROSE 5% 50 ML IVPB ONE (05:00)
[2020-12-15] MEDS ORDERED: ACETAMINOPHEN 325 MG TABLET PO PRN (05:00)
[2020-12-15] MEDS ORDERED: ONDANSETRON 2MG/ML, 2ML IVPush PRN (05:00)
[2020-12-15] MEDS ORDERED: HYDROcodone/APAP 5/325 TABLET PO PRN (05:00)
[2020-12-15] MEDS ORDERED: LORazepam 0.5MG TABLET PO PRN (05:00)
[2020-12-15] MEDS ORDERED: LABETALOL 5MG/ML, 20ML IVPush PRN (05:00)
[2020-12-15] MEDS ORDERED: LORazepam 1MG TABLET PO PRN ×4 (05:00)
[2020-12-15] MEDS ORDERED: FOLIC ACID 1 MG TABLET PO ONE (05:00)
[2020-12-15] MEDS: DIAZEPAM 5 MG TABLET PO SCH ×4 (05:00→23:00)
[2020-12-15] MEDS ORDERED: GABAPENTIN 300 MG CAPSULE ONE (05:29)
[2020-12-15] MEDS: GABAPENTIN 300 MG CAPSULE PO SCH ×4 (05:37→20:05)
[2020-12-15 06:28] VITALS: BP 151/107
[2020-12-15 07:25] VITALS: BP 147/86
[2020-12-15] MEDS: APIXABAN 5 MG TABLET PO SCH ×2 (08:14→20:05)
[2020-12-15] MEDS: MULTIVITAMINS/MINERALS TABLET PO SCH (08:14)
[2020-12-15 13:20] VITALS: BP 128/87
[2020-12-15] MEDS: CARVEDILOL 6.25 MG TABLET PO SCH (18:04)
[2020-12-15 20:01] VITALS: BP 111/68
[2020-12-16 00:49] VITALS: BP 111/68
[2020-12-16 05:27] LABS: BASOPHILS % (AUTO) 1 % (0-1); EOSINOPHILS % (AUTO) 1 % (1-7); LYMPHOCYTES % (AUTO) 33 % (22-44); MEAN CORPUSCULAR HEMOGLOBIN 34.7 pg (27.5-34.5); MEAN CORPUSCULAR HGB CONC 34.2 g/dL (33.2-36.2); MEAN PLATELET VOLUME 10.2 fL (7.4-10.4); MONOCYTES % (AUTO) 14 % (2-9); NEUTROPHILS % (AUTO) 52 % (42-75); PLATELET COUNT 74 x10^3/uL (130-400); RED BLOOD COUNT 4.37 x10^6/uL (4.38-5.82); RED CELL DISTRIBUTION WIDTH 12.7 % (9.4-14.8)
[2020-12-16] MEDS: GABAPENTIN 300 MG CAPSULE PO SCH ×4 (05:34→22:10)
[2020-12-16] MEDS: CARVEDILOL 6.25 MG TABLET PO SCH ×2 (05:34→16:54)
[2020-12-16] MEDS: DIAZEPAM 5 MG TABLET PO SCH ×4 (05:34→22:10)
[2020-12-16 05:38] LABS: MD NO
[2020-12-16 05:42] LABS: ALBUMIN 3.6 g/dL (3.4-5.0); CALCIUM 9.6 mg/dL (8.5-10.1); CHLORIDE 102 mmol/L (98-107)
[2020-12-16 05:47] LABS: ALANINE AMINOTRANSFERASE 29 U/L (12-78); ALKALINE PHOSPHATASE 92 U/L (45-117); ANION GAP 6 mmol/L (5-15); BILIRUBIN,TOTAL 2.2 mg/dL (0.2-1.0); CREATININE 0.86 mg/dL (0.7-1.3); TOTAL PROTEIN 6.4 g/dL (6.4-8.2)
[2020-12-16 07:05] VITALS: BP 118/87
[2020-12-16] MEDS: POTASSIUM CHLORIDE 20 MEQ TAB.ER.PRT PO SCH ×3 (09:50→16:52)
[2020-12-16] MEDS: THIAMINE 100 MG in DEXTROSE 5% 50 ML IVPB SCH (09:50)
[2020-12-16] MEDS: MULTIVITAMINS/MINERALS TABLET PO SCH (09:50)
[2020-12-16] MEDS: APIXABAN 5 MG TABLET PO SCH ×2 (09:50→22:10)
[2020-12-16 14:29] VITALS: BP 120/81
[2020-12-16 16:53] VITALS: BP 119/79
[2020-12-16 19:02] VITALS: BP 129/89
[2020-12-17] MEDS ORDERED: DIPHENOXYLATE/ATROPINE TABLET PO PRN
[2020-12-17 00:38] VITALS: BP 135/97
[2020-12-17 04:53] LABS: ANION GAP 8 mmol/L (5-15); CALCIUM 8.7 mg/dL (8.5-10.1); CHLORIDE 108 mmol/L (98-107); CREATININE 0.92 mg/dL (0.7-1.3)
[2020-12-17] MEDS: CARVEDILOL 6.25 MG TABLET PO SCH (05:18)
[2020-12-17] MEDS: GABAPENTIN 300 MG CAPSULE PO SCH (05:18)
[2020-12-17] MEDS: DIAZEPAM 5 MG TABLET PO SCH (05:18)
[2020-12-17] MEDS: MULTIVITAMINS/MINERALS TABLET PO SCH (07:56)
[2020-12-17] MEDS: APIXABAN 5 MG TABLET PO SCH (07:56)
[2020-12-17] MEDS: THIAMINE 100 MG in DEXTROSE 5% 50 ML IVPB SCH (07:56)
[2020-12-17 08:45] VITALS: BP 123/70
[2020-12-17] MEDS ORDERED: APIX5TAB PO (09:09)
[2020-12-17] MEDS ORDERED: CARV6.2512 PO (09:09)
[2020-12-17] MEDS ORDERED: THIA100T67 PO (09:09)
[2020-12-17] MEDS ORDERED: MULT-484 PO (09:09)
[2020-12-17] MEDS ORDERED: FOLI1TAB32 PO (09:09)
== END 2020-12-17 10:39 | disposition home or self-care (01) | DRG 309 ==
LOC: ED 04:35 → EDIP 04:47 → 5SO 06:07 → DCLOUNGE 12-17 10:25
PROVIDERS: ADMIT Internal Medicine; ATTEND Internal Medicine
DX: I48.0 Paroxysmal atrial fibrillation (principal); D68.69 Other thrombophilia; E87.1 Hypo-osmolality and hyponatremia; F10.239 Alcohol dependence with withdrawal, unspecified; D53.9 Nutritional anemia, unspecified; I10 Essential (primary) hypertension; E86.1 Hypovolemia; E87.6 Hypokalemia; Z79.899 Other long term (current) drug therapy; Z91.14 Patient's other noncompliance with medication regimen; Z79.01 Long term (current) use of anticoagulants; Z88.2 Allergy status to sulfonamides
CPT/HCPCS: 36415; 71045; 80048; 80053; 82040; 83735; 84100; 84484; 85025; 93005; 96374; 96375; 99291; G0378; J3411; J2060; J7030

== ENCOUNTER 2021-02-23 10:33 | Inpatient (IN) | payer MEDICAID ==
[~2021-02-23] VITALS: Ht 180.3 cm; Wt 92.4 kg
[~2021-02-23 10:33] MED LIST changes: +CARV6.2512 PO; +FOLI1TAB32 PO; +MULT-484 PO
[2021-02-23] MEDS ORDERED: HYDR-826 PO (10:50)
[2021-02-23] MEDS ORDERED: GABA600T7 PO (10:50)
--- NOTE | 2021-02-23 10:56 | NUR ---
BIB [facility] PT HAD C/O OF SOBX 1 WEEK, THIS MORNING WOKE UP AND COULDN'T CATCH HIS BREATH. 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 PIV STARTED, LABS COLLECTED INCLUDING 1 BLOOD CULTURE BY RU. EKG COMPLETED. RT BEDSIDE AND ASSESSED PT. MD ALSO PRESENT UPON ARRIVAL AND ASSED. PT HTN, TACHYCARDIC, TACHYPNEA 15L NONREBREATHER 95% SAT. NADN. BED RAIL UPX2, HOOKED UP TO MONITOR, CALL LIGHT WITHIN REACH. XRAY CURRENTLY BEDSIDE.
[2021-02-23 11:00] LABS: BASOPHILS % (AUTO) 2 % (0-1); EOSINOPHILS % (AUTO) 2 % (1-7); LYMPHOCYTES % (AUTO) 15 % (22-44); MEAN CORPUSCULAR HEMOGLOBIN 36.3 pg (27.5-34.5); MEAN CORPUSCULAR HGB CONC 34.1 g/dL (33.2-36.2); MEAN PLATELET VOLUME 8.6 fL (7.4-10.4); MONOCYTES % (AUTO) 9 % (2-9); NEUTROPHILS % (AUTO) 73 % (42-75); PLATELET COUNT 308 x10^3/uL (130-400); RED BLOOD COUNT 3.87 x10^6/uL (4.38-5.82); RED CELL DISTRIBUTION WIDTH 14.4 % (9.4-14.8)
[2021-02-23] MEDS ORDERED: SODIUM CHLORIDE FLUSH 10ML SYR IVF ONE (11:00)
--- NOTE | 2021-02-23 11:06 | NUR ---
MALAIKA HARRIS WENT BY ROOM AND PT WAS 100%, SHE DECREASED OXYGEN FROM 15 TO 12L.
[2021-02-23 11:13] LABS: ALANINE AMINOTRANSFERASE 86 U/L (12-78); ALBUMIN 3.6 g/dL (3.4-5.0); ANION GAP 8 mmol/L (5-15); CALCIUM 8.6 mg/dL (8.5-10.1); CHLORIDE 108 mmol/L (98-107); CREATININE 0.74 mg/dL (0.7-1.3)
[2021-02-23 11:17] LABS: ALKALINE PHOSPHATASE 88 U/L (45-117); BILIRUBIN,TOTAL 0.4 mg/dL (0.2-1.0); TOTAL PROTEIN 6.7 g/dL (6.4-8.2); TROPONIN I < 0.015 ng/mL (0.000-0.045)
[2021-02-23 11:24] LABS: <PLATELET ESTIMATE> ADEQUATE; <PLT MORPHOLOGY> NORMAL PLT MORPH; MD MORPH REVIEW ONLY
--- NOTE | 2021-02-23 11:24 | NUR ---
PT WAS PLACED ON RA, HE WENT DOWN TO 85%. PLACED PT ON 5L HE WENT UP TO 98%. PLACED PT ON NC, TURNED DOWN TO 3L. MD AND RT BEDSIDE, AND PT FEELS GOOD. HOLDING OFF ON BIPAP RIGHT NOW. PT UPDATED ON POC. NADN. CALL LIGHT WITHIN REACH. BEDRAIL UPX2
[2021-02-23] MEDS ORDERED: FUROSEMIDE 40 MG/4 ML IV ONE (11:30)
[2021-02-23] MEDS ORDERED: FUROSEMIDE 40 MG/4 ML ONE (11:38)
--- NOTE | 2021-02-23 11:52 | NUR ---
SEPSIS SCREEN FORM INITATED. NO BOLUS REQUIRED AT THIS TIME. CUFF PRESSER SIGNED. PT COVID TEST COMPLETED, WALKED TO LAB.
--- NOTE | 2021-02-23 12:08 | NUR ---
PT UP TO BATHROOM AND RETURNED WITHOUT INCIDENT. HOOKED UP TO MONITORS. PT STILL HTN, TACHCARDIC. CALL LIGHT WITHIN REACH.
[2021-02-23] MEDS ORDERED: CEFTRIAXONE 2 GM in DEXTROSE 5% 50 ML IVPB ONE (12:30)
[2021-02-23] MEDS ORDERED: AZITHROMYCIN 500 MG in SODIUM CHLORIDE 0.9% 250 ML IV ONE (13:00)
--- NOTE | 2021-02-23 13:00 | NUR ---
PT MEDICATED WITH ABX, SEE EMAR. PT UP TO BATHROOM AND BACK WITHOUT INCIDENT, HAD BM PER PT REPORT. HE ALSO VOIDED 725 IN URINAL. NADN. STILL HTN.
[2021-02-23] MEDS ORDERED: DOCUSATE 100 MG CAPSULE PO PRN (13:30)
[2021-02-23] MEDS ORDERED: ENALAPRILAT 1.25 MG/ML, 2ML IVPush PRN (13:30)
[2021-02-23] MEDS ORDERED: ACETAMINOPHEN 325 MG TABLET PO PRN (13:30)
[2021-02-23] MEDS ORDERED: morphine SULFATE 10 MG/ML, 1ML IVPush PRN (13:30)
[2021-02-23] MEDS ORDERED: ENOXAPARIN 40 MG/0.4 ML SQ SCH (13:30)
[2021-02-23] MEDS ORDERED: ONDANSETRON 2MG/ML, 2ML IVPush PRN (13:30)
[2021-02-23] MEDS ORDERED: TRAZODONE 50MG TABLET PO PRN (13:30)
[2021-02-23] MEDS ORDERED: ONDANSETRON ODT 4 MG PO PRN (13:30)
[2021-02-23 13:42] VITALS: BP 138/99
[2021-02-23 14:51] LABS: TROPONIN I < 0.015 ng/mL (0.000-0.045)
[2021-02-23 15:55] VITALS: BP 125/95
[2021-02-23] MEDS: GABAPENTIN 300 MG CAPSULE PO SCH ×2 (17:09→20:50)
[2021-02-23] MEDS: FUROSEMIDE 40 MG/4 ML IV SCH (17:09)
[2021-02-23] MEDS: POTASSIUM CHLORIDE 20 MEQ TAB.ER.PRT PO SCH (17:09)
[2021-02-23] MEDS ORDERED: MELA1TAB15 PO (17:48)
[2021-02-23] MEDS: CARVEDILOL 6.25 MG TABLET PO SCH (18:10)
[2021-02-23 18:11] VITALS: BP 139/101
[2021-02-23 18:47] VITALS: BP 137/92
[2021-02-23 19:46] LABS: TROPONIN I < 0.015 ng/mL (0.000-0.045)
[2021-02-23] MEDS: MELATONIN 5 MG TABLET PO PRN (20:49)
[2021-02-23] MEDS: APIXABAN 5 MG TABLET PO SCH (20:50)
[2021-02-24 00:49] VITALS: BP 116/77
[2021-02-24 05:10] LABS: BASOPHILS % (AUTO) 2 % (0-1); EOSINOPHILS % (AUTO) 3 % (1-7); LYMPHOCYTES % (AUTO) 26 % (22-44); MEAN CORPUSCULAR HEMOGLOBIN 36.1 pg (27.5-34.5); MEAN CORPUSCULAR HGB CONC 33.9 g/dL (33.2-36.2); MEAN PLATELET VOLUME 8.5 fL (7.4-10.4); MONOCYTES % (AUTO) 14 % (2-9); NEUTROPHILS % (AUTO) 55 % (42-75); PLATELET COUNT 305 x10^3/uL (130-400); RED BLOOD COUNT 3.48 x10^6/uL (4.38-5.82); RED CELL DISTRIBUTION WIDTH 14.5 % (9.4-14.8)
[2021-02-24 05:15] LABS: MD NO
[2021-02-24 05:25] LABS: CHLORIDE 110 mmol/L (98-107)
[2021-02-24 05:45] LABS: ALANINE AMINOTRANSFERASE 59 U/L (12-78); ALBUMIN 2.9 g/dL (3.4-5.0); ALKALINE PHOSPHATASE 69 U/L (45-117); ANION GAP 7 mmol/L (5-15); BILIRUBIN,TOTAL 0.3 mg/dL (0.2-1.0); CALCIUM 8.4 mg/dL (8.5-10.1); CREATININE 0.92 mg/dL (0.7-1.3); FREE T4 (FREE THYROXINE) 1.08 ng/dL (0.76-1.46); TOTAL PROTEIN 5.5 g/dL (6.4-8.2)
[2021-02-24] MEDS: CARVEDILOL 6.25 MG TABLET PO SCH ×2 (06:04→17:11)
[2021-02-24 06:44] VITALS: BP 124/83
[2021-02-24] MEDS: FUROSEMIDE 40 MG/4 ML IV SCH ×2 (08:12→17:10)
[2021-02-24] MEDS: POTASSIUM CHLORIDE 20 MEQ TAB.ER.PRT PO SCH ×2 (08:12→17:10)
[2021-02-24] MEDS: LISINOPRIL 5 MG TABLET PO SCH (08:13)
[2021-02-24] MEDS: MULTIVITAMINS/MINERALS TABLET PO SCH (08:13)
[2021-02-24] MEDS: GABAPENTIN 300 MG CAPSULE PO SCH ×3 (08:13→21:20)
[2021-02-24] MEDS: APIXABAN 5 MG TABLET PO SCH ×2 (08:13→21:20)
[2021-02-24 08:17] VITALS: BP 132/100
[2021-02-24 12:49] VITALS: BP 124/79
[2021-02-24] MEDS ORDERED: CEFTRIAXONE 1,000 MG in DEXTROSE 5% 50 ML IVPB SCH (13:30)
[2021-02-24 17:13] VITALS: BP 125/83
[2021-02-24 18:44] VITALS: BP 130/88
[2021-02-24] MEDS: ATORVASTATIN 40 MG TABLET PO SCH (21:20)
[2021-02-24] MEDS: MELATONIN 5 MG TABLET PO PRN (21:20)
[2021-02-25 03:55] VITALS: BP 111/79
[2021-02-25] MEDS: CARVEDILOL 6.25 MG TABLET PO SCH ×2 (06:17→17:01)
[2021-02-25 07:06] VITALS: BP 127/88
[2021-02-25 07:32] LABS: BASOPHILS % (AUTO) 2 % (0-1); EOSINOPHILS % (AUTO) 3 % (1-7); LYMPHOCYTES % (AUTO) 34 % (22-44); MEAN CORPUSCULAR HEMOGLOBIN 35.7 pg (27.5-34.5); MEAN CORPUSCULAR HGB CONC 33.6 g/dL (33.2-36.2); MEAN PLATELET VOLUME 8.4 fL (7.4-10.4); MONOCYTES % (AUTO) 14 % (2-9); NEUTROPHILS % (AUTO) 47 % (42-75); PLATELET COUNT 325 x10^3/uL (130-400); RED BLOOD COUNT 3.83 x10^6/uL (4.38-5.82); RED CELL DISTRIBUTION WIDTH 14.2 % (9.4-14.8)
[2021-02-25 07:33] LABS: MD NO
[2021-02-25 07:38] LABS: ALANINE AMINOTRANSFERASE 50 U/L (12-78); ALBUMIN 3.2 g/dL (3.4-5.0); ANION GAP 6 mmol/L (5-15); CALCIUM 9.1 mg/dL (8.5-10.1); CHLORIDE 106 mmol/L (98-107); CREATININE 0.98 mg/dL (0.7-1.3)
[2021-02-25 07:40] LABS: ALKALINE PHOSPHATASE 71 U/L (45-117); BILIRUBIN,TOTAL 0.6 mg/dL (0.2-1.0)
[2021-02-25] MEDS ORDERED: REGADENOSON 0.4 MG/5 ML SYRINGE ONE (08:09)
[2021-02-25] MEDS: APIXABAN 5 MG TABLET PO SCH ×2 (10:45→21:22)
[2021-02-25] MEDS: GABAPENTIN 300 MG CAPSULE PO SCH ×3 (10:45→21:22)
[2021-02-25] MEDS: MULTIVITAMINS/MINERALS TABLET PO SCH (10:46)
[2021-02-25] MEDS: LISINOPRIL 5 MG TABLET PO SCH (10:46)
[2021-02-25] MEDS: POTASSIUM CHLORIDE 20 MEQ TAB.ER.PRT PO SCH ×2 (10:47→17:00)
[2021-02-25 12:03] VITALS: BP 125/87
[2021-02-25] MEDS: FUROSEMIDE 20 MG/2 ML IV SCH (17:00)
[2021-02-25 20:05] VITALS: BP 112/85
[2021-02-25] MEDS: ATORVASTATIN 40 MG TABLET PO SCH (21:22)
[2021-02-25] MEDS: MELATONIN 5 MG TABLET PO PRN (21:22)
[2021-02-26 02:27] VITALS: BP 123/85
[2021-02-26] MEDS: CARVEDILOL 6.25 MG TABLET PO SCH ×2 (06:04→17:56)
[2021-02-26 08:16] VITALS: BP 121/77
[2021-02-26] MEDS: POTASSIUM CHLORIDE 20 MEQ TAB.ER.PRT PO SCH (08:18)
[2021-02-26] MEDS: FUROSEMIDE 20 MG/2 ML IV SCH ×2 (08:19→16:11)
[2021-02-26 09:32] LABS: ANION GAP 6 mmol/L (5-15); CALCIUM 9.2 mg/dL (8.5-10.1); CHLORIDE 107 mmol/L (98-107); CREATININE 0.77 mg/dL (0.7-1.3)
[2021-02-26] MEDS: MULTIVITAMINS/MINERALS TABLET PO SCH (09:33)
[2021-02-26] MEDS: APIXABAN 5 MG TABLET PO SCH (09:33)
[2021-02-26] MEDS: GABAPENTIN 300 MG CAPSULE PO SCH ×2 (09:33→16:11)
[2021-02-26] MEDS: LISINOPRIL 5 MG TABLET PO SCH (09:33)
[2021-02-26 14:22] VITALS: BP 112/80
[2021-02-26] MEDS ORDERED: LISI5TAB7 PO (16:57)
[2021-02-26] MEDS ORDERED: POTA20PA25 PO (16:57)
[2021-02-26] MEDS ORDERED: FURO20TA3 PO (16:57)
[2021-02-26] MEDS ORDERED: ATOR40TA78 PO (17:09)
== END 2021-02-26 18:55 | disposition home or self-care (01) | DRG 291 ==
LOC: ED 11:17 → EDIP 12:26 → 3N 13:19 → 4WST 15:17
PROVIDERS: ADMIT Hospitalist; ATTEND Internal Medicine
DX: I11.0 Hypertensive heart disease with heart failure (principal); J96.01 Acute respiratory failure with hypoxia; D68.69 Other thrombophilia; G62.9 Polyneuropathy, unspecified; I27.20 Pulmonary hypertension, unspecified; I34.0 Nonrheumatic mitral (valve) insufficiency; Z20.822 Contact with and (suspected) exposure to COVID-19; F10.11 Alcohol abuse, in remission; R74.01 Elevation of levels of liver transaminase levels; I42.9 Cardiomyopathy, unspecified; I48.0 Paroxysmal atrial fibrillation; I50.23 Acute on chronic systolic (congestive) heart failure; I77.810 Thoracic aortic ectasia; Z79.01 Long term (current) use of anticoagulants; Z79.899 Other long term (current) drug therapy; Z86.711 Personal history of pulmonary embolism
CPT/HCPCS: 36415; 71045; 78452; 80048; 80053; 82728; 83605; 83615; 83735; 83880; 84145; 84439; 84443; 84484; 85025; 87040; 93005; 93017; 93306; 96365; 96375; 99285; G0378; J0456; J0696; J1940; J2785; U0005; A9502; J7050; Q0177; U0003